=== PATIENT | female | born 1970 | race Hispanic/Latino ===

== ENCOUNTER 2022-07-01 17:54 | Emergency (ER) | payer SELFPAY ==
[2022-07-01] MEDS ORDERED: ONDANSETRON 4 MG/2 ML VIAL ONE (18:48)
[2022-07-01] MEDS ORDERED: NA CHLORIDE 0.9% 1,000 ML ONE (18:48)
[2022-07-01 18:58] LABS: Absolute Lymphocytes (CBC) 1.7 K/uL (0.7-4.9); Hematocrit 35.5 % (36.0-45.0); Lymphocytes % 12.7 % (15.3-44.8); MCV 89.8 fL (80-100); RBC Red Blood Cell Count 3.95 M/uL (3.86-4.86)
[2022-07-01 18:59] LABS: Protime INR 1.1
[2022-07-01 19:11] LABS: ALT/SGPT 32 U/L (12-78); AST/SGOT 16 U/L (15-37); Albumin 3.8 g/dL (3.4-5.0); Alkaline Phosphatase 81 U/L (45-117); BUN Blood Urea Nitrogen 13 mg/dL (7-18); Bicarbonate 26 mmol/L (21-32); Bilirubin Total 0.2 mg/dL (0.2-1.0); Glomerular Filtration Rate 109 ml/min (=/>90); Glucose Level 179 mg/dL (74-106); NT PRO-BNP 59 pg/mL (<125); Potassium 3.4 mmol/L (3.5-5.1); Sodium Level 138 mmol/L (136-145); Troponin High Sensitivity 3.5 pg/mL (<58.9)
--- NOTE | 2022-07-01 19:17 | RAD REPORT ---
EXAM DESCRIPTION: Andrey Single View07/01/2022 6:53 pm CLINICAL HISTORY: sob COMPARISON: none FINDINGS: The lungs appear clear of acute infiltrate. The heart is normal size IMPRESSION: No acute abnormalities displayed
[2022-07-01 19:23] LABS: Bilirubin Direct < 0.1 mg/dL (0-0.2)
--- NOTE | 2022-07-01 21:01 | EDPHYS ---
Physician Documentation [facility] Name: Anay Pickett Age: 52 yrs Sex: Female : 1970 Arrival Date: 07/01/2022 Time: 18:01 Bed 7 Private MD: ED Physician Len Fox HPI: 07/01 18:13 This 52 yrs old Female presents to ER via EMS with complaints of Breathing jmm Difficulty. 18:13 The patient has shortness of breath with light activity. Onset: The symptoms/episode jmm began/occurred acutely, today. Duration: The symptoms are continuous, and are steadily getting worse. The patient's shortness of breath is aggravated by Movement. This is a 52-year-old female with history of hypertension that presents emerged department with complaints of palpitations, vomiting which began soon after drinking an energy drink cold Celsius. This was around noon. Patient states she attempted to go to bed afterwards but unable to sleep and subsequently vomited. Patient states she now feels short of breath. Denies abdominal pain. 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 - Social history:: Smoking status: unknown. ROS: 18:13 Cardiovascular: Positive for palpitations. jmm 18:13 Abdomen/GI: Positive for nausea, vomiting. 18:13 Neuro: Positive for dizziness. 18:13 All other systems are negative. Exam: 18:13 Constitutional: This is a well developed, well nourished patient who is awake, alert, jmm and in no acute distress. Head/Face: atraumatic. Eyes: EOMI, no conjunctival erythema appreciated ENT: Moist Mucus Membranes Neck: Trachea midline, Supple Chest/axilla: Normal chest wall appearance and motion. 18:13 Respiratory: Normal respirations, no respiratory distress appreciated Abdomen/GI: Non distended Back: Normal ROM Skin: General appearance color normal MS/ Extremity: Moves all extremities, no obvious deformities appreciated, no edema noted to the lower extremities Neuro: Awake and alert Psych: Behavior is normal, Mood is normal, Patient is cooperative and pleasant 18:13 Cardiovascular: Rate: normal, Rhythm: regular, Pulses: no pulse deficits are appreciated. Vital Signs: 18:49 BP 147 / 71; Pulse 72; Resp 24; Pulse Ox 96% on R/A; Pain 0/10; ld1 18:49 Weight 73.03 kg; Height 5 ft. 2 in. (157.48 cm); ld1 19:36 BP 150 / 71; Pulse 69; Resp 14; Pulse Ox 98% on R/A; eh3 18:49 Body Mass Index 29.45 (73.03 kg, 157.48 cm) ld1 MDM: 18:13 Patient medically screened. kandis 21:00 Data reviewed: vital signs, nurses notes. Counseling: I had a detailed discussion with dahlia the patient and/or guardian regarding: the historical points, exam findings, and any diagnostic results supporting the discharge/admit diagnosis, lab results, radiology results, the need for outpatient follow up, to return to the emergency department if symptoms worsen or persist or if there are any questions or concerns that arise at home. Refusal of service: The patient/guardian displays adequate decision making capability and despite a detailed discussion of alternatives, benefits, risks, and consequences refuses: CT Scan. 07/01 18:19 Order name: Basic Metabolic Panel; Complete Time: 19:28 [facility] 07/01 18:19 Order name: CBC with Diff; Complete Time: 19:12 [facility] 07/01 18:19 Order name: LFT's; Complete Time: 19:28 [facility] 07/01 18:19 Order name: Magnesium; Complete Time: 19:28 [facility] 07/01 18:19 Order name: NT PRO-BNP; Complete Time: 19:28 [facility] 07/01 18:19 Order name: PT-INR; Complete Time: 19:12 [facility] 07/01 18:19 Order name: Troponin HS; Complete Time: 19:28 [facility] 07/01 18:19 Order name: EKG; Complete Time: 18:20 [facility] 07/01 18:27 Order name: CXR XRAY; Complete Time: 19:18 07/01 19:17 Order name: SARS-COV-2 RT PCR (Document "Date of Onset" if Symptomatic); Complete Time: [facility] :07/01 20:06 Order name: D-Dimer; Complete Time: 20:19 [facility] 07/01 18:19 Order name: Cardiac monitoring; Complete Time: 18:38 [facility] 07/01 18:19 Order name: EKG - Nurse/Tech; Complete Time: 18:37 [facility] 07/01 18:19 Order name: IV Saline Lock; Complete Time: 18:37 [facility] 07/01 18:19 Order name: Labs collected and sent; Complete Time: 18:45 [facility] 07/01 18:19 Order name: O2 Per Protocol; Complete Time: 18:48 [facility] 07/01 18:19 Order name: O2 Sat Monitoring; Complete Time: 18:37 [facility] 07/01 20:52 Order name: PO challenge; Complete Time: 21:16 [facility] 07/01 20:52 Order name: Misc. Order: ambulate; Complete Time: 21:16 [facility] Administered Medications: 18:45 Drug: NS 0.9% 1000 ml Route: IV; Rate: 1 bolus; Site: left antecubital; jg9 21:25 Follow up: IV Status: Completed infusion; IV Intake: 1000ml 3 18:45 Drug: Zofran (Ondansetron) 4 mg Route: IVP; Site: left antecubital; jg9 21:16 Follow up: Response: Nausea is decreased eh3 Disposition Summary: 07/01/22 21:01 Discharge Ordered Location: Home [facility] Condition: Stable [facility] Diagnosis - Dyspnea jmm - Vomiting [facility] Followup: [facility] - With: Private Physician - When: 2 - 3 days - Reason: Recheck today's complaints, Continuance of care, Re-evaluation by your physician Discharge Instructions: - Discharge Summary Sheet [facility] - Shortness of Breath, Adult [facility] - Vertigo jmm - Vomiting, Adult [facility] - Form - Excuse from Work, School, or Physical Activity eh3 Forms: - Medication Reconciliation Form [facility] - Thank You Letter [facility] - Antibiotic Education [facility] - Prescription Opioid Use [facility] Prescriptions: - ondansetron 4 mg Oral tablet,disintegrating - take 1 tablet by ORAL route every 4-6 hours; 20 tablet; Refills: 0, Product [facility] Selection Permitted Signatures: Dispatcher [employer] Len Moura MD MD cha Mickail, Joel, PA PA jmm Williams, Irene, RN RN iw Lisa Salazar RN RN jg9 Radha Dasilva RN RN eh3 Corrections: (The following items were deleted from the chart) 18:31 18:20 Chest Single View+RAD.RAD.BRZ ordered. EDMS EDMS
--- NOTE | 2022-07-01 21:01 | ER ---
Nurse's Notes [facility] Name: Anay Pickett Age: 52 yrs Sex: Female : 1970 Arrival Date: 07/01/2022 Time: 18:01 Bed 7 Private MD: Diagnosis: Dyspnea;Vomiting Presentation: 07/01 18:08 Chief complaint: EMS states: pt c/o sudden onset diff breathing, vomited a few times iw PTS, was initially hypertensive on scene, now BP down to 150s systolic. Coronavirus screen: Client presents with at least one sign or symptom that may indicate coronavirus-19. Ebola Screen: Patient negative for fever greater than or equal to 101.5 degrees Fahrenheit, and additional compatible Ebola Virus Disease symptoms Patient denies exposure to infectious person. Patient denies travel to an Ebola-affected area in the 21 days before illness onset. No symptoms or risks identified at this time. Initial Sepsis Screen: Does the patient meet any 2 criteria? No. Patient's initial sepsis screen is negative. Does the patient have a suspected source of infection? No. Patient's initial sepsis screen is negative. Risk Assessment: Do you want to hurt yourself or someone else? Patient reports no desire to harm self or others. Onset of symptoms was July 01, 2022. 18:08 Method Of Arrival: EMS: [facility] iw 18:08 Acuity: LANCE 3 iw Triage Assessment: 21:15 General: Appears distressed, uncomfortable, Behavior is cooperative, appropriate for eh3 age. Respiratory: Onset: The symptoms/episode began/occurred at an unknown time. the patient has moderate shortness of breath. Respiratory: Airway is patent Respiratory effort is even. 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 - Social history:: Smoking status: unknown. Screenin:49 Abuse screen: Denies threats or abuse. Denies injuries from another. Nutritional ld1 screening: No deficits noted. Tuberculosis screening: No symptoms or risk factors identified. Fall Risk None identified. Assessment: 18:49 General: Appears in no apparent distress. comfortable, Behavior is calm, cooperative, ld1 appropriate for age. Pain: Denies pain. Neuro: Level of Consciousness is awake, alert, obeys commands, Oriented to person, place, time, situation. Cardiovascular: Capillary refill < 3 seconds Patient's skin is warm and dry. Rhythm is sinus rhythm. Respiratory: Airway is patent Respiratory effort is even, unlabored. Respiratory: Breath sounds are clear bilaterally. GI: Abdomen is round non-distended. : No signs and/or symptoms were reported regarding the genitourinary system. EENT: No signs and/or symptoms were reported regarding the EENT system. Derm: No signs and/or symptoms reported regarding the dermatologic system. Musculoskeletal: No signs and/or symptoms reported regarding the musculoskeletal system. 18:51 Respiratory: Reports shortness of breath at rest on exertion. GI: Reports nausea, ld1 vomiting. Vital Signs: 18:49 BP 147 / 71; Pulse 72; Resp 24; Pulse Ox 96% on R/A; Pain 0/10; ld1 18:49 Weight 73.03 kg; Height 5 ft. 2 in. (157.48 cm); ld1 19:36 BP 150 / 71; Pulse 69; Resp 14; Pulse Ox 98% on R/A; eh3 18:49 Body Mass Index 29.45 (73.03 kg, 157.48 cm) ld1 ED Course: 18:01 Patient arrived in ED. bd 18:09 Triage completed. iw 18:09 Vinnie Castillo PA is PHCP. jmm 18:09 Len Fox MD is Attending Physician. jmm 18:11 Arm band placed on. iw 18:15 Maintain EMS IV. Dressing intact. Site clean \T\ dry. Gauge \T\ site: 20 left ac. mb 7 18:26 Lisa Salazar RN is Primary Nurse. jg9 18:49 Patient has correct armband on for positive identification. Placed in gown. Bed in low ld1 position. Call light in reach. Side rails up X2. engine monitor on. Pulse ox on. NIBP on. Door closed. Noise minimized. Warm blanket given. 18:49 No provider procedures requiring assistance completed. ld1 18:55 CXR XRAY In Process Unspecified. EDMS 20:00 Assisted to bathroom. eh3 21:14 IV discontinued, intact, bleeding controlled, No redness/swelling at site. Pressure eh3 dressing applied. Administered Medications: 18:45 Drug: NS 0.9% 1000 ml Route: IV; Rate: 1 bolus; Site: left antecubital; jg9 21:25 Follow up: IV Status: Completed infusion; IV Intake: 1000ml eh3 18:45 Drug: Zofran (Ondansetron) 4 mg Route: IVP; Site: left antecubital; jg9 21:16 Follow up: Response: Nausea is decreased eh3 Medication: 18:49 VIS not applicable for this client. ld1 Intake: 21:25 IV: 1000ml; Total: 1000ml. 3 Outcome: 21:01 Discharge ordered by . dahlia 21:14 Discharged to home ambulatory. [facility] 21:14 Condition: stable 21:14 Discharge instructions given to patient, Instructed on discharge instructions, follow up and referral plans. medication usage, Demonstrated understanding of instructions, follow-up care, medications, Prescriptions given X 1. 21:27 Patient left the ED. 3 Signatures: Dispatcher [employer] EDMS Coty Carlton Joel, PA PA Latonia Shore, RN KAIN iw Emely Davis RN RN ld1 Mary Carmen Wyatt 7 Lisa Salazar RN RN jg9 Radha Dasilva RN RN 3
[2022-07-01 23:44] VITALS: BP 150/71; O2SAT 98
--- NOTE | 2022-07-02 15:39 | EKG ---
Test Date: 2022-07-01 Test Time: 18:38:23 Battery Starter: DEBBIE MEASUREMENT RESULTS: Intervals: Rate: 70 IA: 146 QRSD: 88 QT: 422 QTc: 455 Townsend: P: 51 IA: 146 QRS: 87 T: 55 INTERPRETIVE STATEMENTS: Normal sinus rhythm Cannot rule out Anterior infarct, age undetermined Abnormal ECG No previous ECG available for comparison Electronically Signed On 07-02-22 15:38:24 CDT by Kp Mukherjee
== END 2022-07-01 21:27 | disposition home or self-care (01) ==
LOC: ER 17:54
DX: R06.00 Dyspnea, unspecified (principal); R11.10 Vomiting, unspecified; I10 Essential (primary) hypertension
CPT/HCPCS: 36415; 71045; 80048; 80076; 83735; 83880; 84484; 85025; 85379; 85610; 93005; 96361; 96374; 99284; J2405; J7030; U0003